=== PATIENT | female | born 1975 | race Two or more races ===

== ENCOUNTER 2024-04-24 09:25 | Day surgery (SDC) | payer MEDICAID, SELFPAY ==
--- NOTE | 2024-04-19 12:14 | ESHP_ITS ---
RE: DEE REEDER : 1975 DATE OF ADMISSION: 04/24/2024 HISTORY OF PRESENT ILLNESS: This is a 48-year-old 4, para 4 with abnormal uterine bleeding and submucous myoma who presents for removal of submucous myoma and endometrial ablation. ALLERGIES: CIPROFLOXACIN, NITROFURANTOIN, PENICILLIN, SULFAMETHOXAZOLE, TRIMETHOPRIM. MEDICATIONS: 1. control pill. 2. Drospirenone and ethinyl estradiol 3-0.02 mg tablet p.o. daily. 3. Ferrous sulfate 325 mg one p.o. b.i.d. PAST MEDICAL HISTORY: Severe iron deficiency anemia due to abnormal uterine bleeding with history of blood transfusion. SOCIAL HISTORY: She denies any alcohol, drug use, or smoking. OBSTETRIC HISTORY: History of 4 previous full-term deliveries. PAST SURGICAL HISTORY: delivery in 1991, 1995, 2007, and 2010. REVIEW OF SYSTEMS: She denies any chest pain, palpitations, cough, fever, shortness of breath, or lower extremity pain. She denies any other complaints. PHYSICAL EXAMINATION: VITAL SIGNS: Blood pressure is 148/82, heart rate 72, respirations 18, temperature 98.2. Weight 133 pounds. HEENT: Oropharynx and sclerae are clear. LUNGS: Clear to auscultation bilaterally. HEART: Regular rate and rhythm. ABDOMEN: Old phenomenal scar noted. EXTREMITIES: Nontender. SKIN: No gross rashes or lesion. NEUROLOGIC: No focal deficits. ASSESSMENT: Abnormal uterine bleeding, submucous myoma. PLAN: Hysteroscopy, MyoSure removal of submucous myoma, fracture dilatation, curettage, and NovaSure endometrial ablation. Informed consent was obtained and the patient was made aware of the risks, complications, alternatives, and benefits of the proposed procedure and she agrees. She is aware of the risk of injury to bowel or bladder, adjacent organs, pulmonary embolism, deep vein thrombosis, pelvic infection, reoperation, repair injury to internal organs, anesthesia complications, the possibility that a laparotomy needs to be performed to repair organs or controlled bleeding, and the possibility that the procedure is not able to be completed due to severe adhesions or technical difficulty. She verbalized understanding and she agrees to proceed with the procedure with an understanding of the risks and complications. DT: 10:06:40 TT: 12:13:00 Ref: [id number] - TID: [id number]
[2024-04-23 11:41] VITALS: BMI 25.9
[2024-04-23 13:48] LABS: Basophils % (Auto) 1 % (0-2.5); Eosinophils % (Auto) 1 % (0-10); Hematocrit 38.4 % (36.0-46.0); Immature Granulocytes % (Auto) 0 % (0-0); Immature Granulocytes Auto 0.01 Thou/mm3 (0.00-0.00); Lymphocytes # (Auto) 1.9 Thou/mm3 (1.0-4.8); Lymphocytes % (Auto) 34 % (10-50); Mean Corpuscular HGB Conc 31.3 g/dl (31.0-37.0); Mean Corpuscular Hemoglobin 23.5 pg (25.0-35.0); Mean Corpuscular Volume 75 fL (80-100); Monocytes # (Auto) 0.3 Thou/mm3 (0.0-0.8); Monocytes % (Auto) 6 % (0-12); Neutrophils # (Auto) 3.3 Thou/mm3 (1.8-7.7); Neutrophils % (Auto) 59 % (37-80); Nucleated Red Blood Cell % 0 /100 WBC (0); Platelet Count 310 Thou/mm3 (140-440); RDW Standard Deviation 46.8 fL (36.4-46.3); White Blood Count 5.6 Thou/mm3 (3.6-11.0)
[2024-04-23 14:01] LABS: Alanine Aminotransferase 14 U/L (10-49); Albumin, Serum 4.1 gm/dL (3.5-5.0); Albumin/Globulin Ratio 1.3 (1.2-2.2); Alkaline Phosphatase 85 U/L (46-116); Anion Gap 8 (7-16); Aspartate Amino Transferase 21 U/L (0-34); BUN/Creatinine Ratio 10 Ratio (12-20); Beta HCG,Quantitative < 1 mIU/mL (<5.0); Bilirubin,Total 0.4 mg/dL (0.3-1.2); Blood Urea Nitrogen 7 mg/dL (9-23); Calcium 9.5 mg/dL (8.3-10.6); Calcium (Corrected) 9.5 mg/dL (8.5-10.1); Carbon Dioxide 24.4 mMol/L (20.0-31.0); Chloride 107 mMol/L (98-107); Creatinine (Component) 0.7 mg/dL (0.6-1.3); Estimated Creatinine Clearance 79.7 mL/min (>60); Globulin 3.1 gm/dL (2.3-3.5); Glucose 88 mg/dL (74-106); Osmolality,Calculated 274 (275-295); Potassium 3.9 mMol/L (3.4-5.1); Sodium 139 mMol/L (136-145); Total Protein 7.2 gm/dL (5.7-8.2); eGFR > 60 See Note
[2024-04-23 14:04] LABS: Partial Thromboplastin Time 25.6 Seconds (22.0-36.0); Prothrombin Time 10.6 Seconds (9.0-12.2)
--- NOTE | 2024-04-23 15:08 | SUR.PREOP ---
Pt notified to come in at 0800 tomorrow for surgery.
[2024-04-24] VITALS (7 sets, daily range): BP systolic 112–145; BP diastolic 68–87; PULSE 81–100; RESP 15–19; TEMP 36.3–37.3; O2SAT 95–100; BMI 25.7
[2024-04-24] MEDS: RINGERS LACTATED 1000 ML 1,000 ML 30 ML IV (08:30)
--- NOTE | 2024-04-24 11:05 | SUR.PHASEI ---
pt received from OR in recovery bay 5. pt asleep but responds to voice, breathing unlabored on room air. v/s stable. pt dressing peripad cdi. report received from Isrrael BECKER and Dr. Kilgore.
--- NOTE | 2024-04-24 11:17 | SUR.PHASEI ---
pt able to tolerate ice chips without difficulty swallowing or nausea/vomiting.
--- NOTE | 2024-04-24 12:05 | SUR.PHASEII ---
pt awake and alert, breathing unlabored on room air. v/s stable. pt dressing peripad cdi. pt able to ambulate to wheelchair with steady gait. d/c instructions given with Akde in room using cafe or restaurant manager scott [email or web address], all questions answered. pt d/c via wheelchair with all belongings.
--- NOTE | 2024-04-27 10:01 | ESOP_ITS ---
RE: DEE REEDER : 1975 DATE OF OPERATION: 04/24/2024 PREOPERATIVE DIAGNOSES: Abnormal uterine bleeding, submucous myoma. POSTOPERATIVE DIAGNOSES: Abnormal uterine bleeding, submucous myoma. PROCEDURES: Hysteroscopy, fractional dilatation and curettage and MyoSure removal of submucous myoma. SURGEON: Tiago Acuña D.O. HAND FABRIC CUTTER: None. ANESTHESIA: General. ANESTHESIOLOGIST: Dr. Kilgore. ESTIMATED BLOOD LOSS: 3 mL. COMPLICATIONS: None. COUNTS: Correct. PATHOLOGY: 1. Submucous myoma. 2. Endocervical curettings. 3. Endometrial curettings. FINDINGS: The uterus sounds to 9.0 cm, anteverted. A cervical length of 3.5 cm. The uterine cavity length was 5.5 cm. The uterine cavity width was 3.0 cm. The power setting was 91 powers. The duration of ablation was 1 minute and 50 seconds. There was a 1.0 x 1.0 submucous myoma at the 9 o'clock position of the mid uterine segment. DESCRIPTION OF PROCEDURE: After appropriate informed consent was obtained and the patient was made aware of the risks, complications, alternatives and benefits of the proposed procedure, she was taken to the operating room where she underwent induction of general anesthesia. She was placed in dorsal lithotomy position. She was prepped and draped in the usual sterile fashion. A timeout was performed. The patient underwent exam under anesthesia. A speculum was placed in the vagina. A single-tooth tenaculum was used to grasp the anterior lip of the cervix. The cervix was measured at 3.5 cm. The uterine cavity was measured at 9.0 cm, anteverted. The cervix was dilated to accommodate the 5.5-mm Omni hysteroscope. The hysteroscope was then utilized to visualize the endocervix and uterine cavity and using the MyoSure reach, the submucous myoma was removed. The endocervix was curetted and specimen sent to pathology. The uterine cavity was curetted and specimen sent to pathology. The NovaSure catheter was plugged into the controller, went through its purge cycle. The 5.5 was entered into the catheter for uterine cavity length. The catheter was appropriately seated in the uterine cavity. The carbon dioxide cavity integrity assessment test was performed. The cavity was intact. The ablation was performed for a total of 1 minute and 50 seconds before the controller shut off. The array was retracted into the sheath. It was removed from the uterine cavity and redeployed and found to be completely intact. There was no bleeding at the end of the procedure. All instruments were removed from the vagina. She was reversed from general anesthesia in the supine position and transferred to the recovery room in stable condition. She tolerated the procedure well. Counts were correct. I discussed with the patient's family the nature of her condition, intraoperative findings, expectation for recovery. All questions answered. DT: 11:02:44 TT: 20:13:00 Ref: [id number] - TID: [id number]
== END 2024-04-24 12:05 | disposition home or self-care (01) ==
PROVIDERS: PCP Physician Assistant; Referring Provider Specialist; Visit Provider Specialist
PROC: 0U5B8ZZ Destruction of Endometrium, Via Natural or Artificial Opening Endoscopic (ICD-10-PCS; CPT 58563; principal; 2024-04-24 10:00)
DX: D26.0 Other benign neoplasm of cervix uteri (principal); D25.0 Submucous leiomyoma of uterus
CPT/HCPCS: 58561; 36415; 80053; 84702; 85025; 85610; 85730; 86850; 86870; 86900; 86901; A4217; A4649; J1100; J2250; J2405; J2704; J3010; J7120

== ENCOUNTER → 2025-03-11 | Outpatient (CLI) | payer MEDICAID, SELFPAY ==
--- NOTE | 2025-03-11 09:30 | XR_ITS ---
Examination: Screening digital mammography, bilateral Computer aided detection 3-D breast Tomosynthesis, bilateral Date and time of exam: March 11, 2025, 0929 hours, compared to mammograms dating to October 02, 2019 Indication: Screening Technique: Nonmagnified MLO, CC views of the breasts to been obtained, reconstructed from 3-D Tomosynthesis images. R2 computer aided detection program utilized for evaluation of suspicious masses and/or abnormal calcifications. 3-D Tomosynthesis images obtained. Findings: The breasts are heterogeneously dense, which may obscure small masses Benign calcifications. No interval suspicious masses Breast biopsy marker upper outer left breast with minimal architectural distortion Impression: BI-RADS category II: Benign Findings. Recommend 1 year follow-up mammogram.
== END | disposition home or self-care (01) ==
LOC: CDIM 09:14
PROVIDERS: PCP Physician Assistant
DX: Z12.31 Encounter for screening mammogram for malignant neoplasm of breast (principal); R92.323 Mammographic fibroglandular density, bilateral breasts; R92.1 Mammographic calcification found on diagnostic imaging of breast
CPT/HCPCS: 77063; 77067